=== PATIENT | female | born 1945 | race Caucasian/White ===

== ENCOUNTER 2022-06-02 10:05 | Emergency (ER) | payer MEDICARE ==
[2022-06-02] MEDS ORDERED: Morphine 4 MG/ML VIAL ONE (11:38)
[2022-06-02] MEDS ORDERED: Diazepam 5 MG TAB ONE (12:00)
[2022-06-02] MEDS ORDERED: Diazepam 2 MG TAB PO SCH (12:00)
== END 2022-06-02 13:09 | disposition home or self-care (01) ==
LOC: CSHERS 10:05
DX: M54.42 Lumbago with sciatica, left side (principal); B35.3 Tinea pedis; I10 Essential (primary) hypertension
CPT/HCPCS: 96372; 99283; J2270

== ENCOUNTER → 2022-06-03 | Emergency (ER) | payer MEDICARE ==
[~2022-06-03] MED LIST: Dexamethasone 10 MG/ML VIAL ONE; Morphine 2 MG/ML VIAL ONE
[2022-06-03 14:11] LABS: Hemoglobin 11.1 g/dL (12.0-15.5); Mean Corpuscular Volume 86.5 fl (81.6-98.3); Red Blood Cell (RBC) Count 3.85 10x6/uL (3.90-5.03); White Blood Cell (WBC) Count 11.5 10x3/uL (3.5-10.5)
[2022-06-03 14:12] LABS: #Basophils 0.1 10x3/uL (0.0-0.2); #Eosinphils 0.5 10x3/uL (0.0-0.5); #Monocytes 1.2 10x3/uL (0.0-1.1); #Neutrophils 8.5 10x3/uL (1.5-8.4); %Basophils 0.4 % (0.0-2.0); %Eosinophils 4.4 % (0.0-6.0); %Lymphocytes 10.7 % (18.0-47.0); %Monocytes 10.5 % (0.0-10.0); %Neutrophils 73.7 % (40.0-75.0); Mean Corpuscular HGB CONC 33.3 g/dL (32.0-36.0); Mean Corpuscular Hemoglobin 28.8 pg (27.0-33.0); Mean Platelet Volume 8.9 fl (7.4-10.4); Platelet Count 536 10x3/uL (130-400); RBC Distribution Width 15.2 % (11.5-14.5)
[2022-06-03 14:13] LABS: Anion Gap 15 mmol/L (10-20); BUN (Urea Nitrogen) 16 mg/dL (9.8-20.1); Carbon Dioxide 21 mmol/L (23-31); Chloride 100 mmol/L (98-107); Potassium 4.5 mmol/L (3.5-5.1); Sodium 131 mmol/L (136-145)
[2022-06-03 14:14] LABS: ALT (SGPT) 16 U/L (8-55); AST (SGOT) 30 U/L (5-34); Albumin 3.7 g/dL (3.4-4.8); Alkaline Phosphatase 64 U/L (40-110); Bilirubin, Total 0.5 mg/dL (0.2-1.2); Calc. Creatinine Clearance 0 mL/min (70-130); Calcium 9.3 mg/dL (7.6-10.4); Estimated GFR 60; Globulin 2.9 g/dL (2.4-3.5); Glucose 86 mg/dL (83-110); Protein, Total 6.6 g/dL (5.8-8.1)
== END ==
LOC: CSHERS 11:59
DX: M54.42 Lumbago with sciatica, left side (principal); M54.41 Lumbago with sciatica, right side; I10 Essential (primary) hypertension
CPT/HCPCS: 72131; 96374; 96375; 96376; J1100; J2270

== ENCOUNTER 2023-10-20 16:06 | Emergency (ER) | payer MEDICARE ==
[2023-10-20 16:40] LABS: Bilirubin Neg (Negative); Blood, Urine 25 (Negative); Glucose, Urine (Dipstick) Normal (Negative); Ketone, Urine Negative (Negative); Leukocyte 500 (Negative); Nitrite Positive (Negative); Protein, Urine (Dipstick) 30 mg/dl (Neg-Trace)
[2023-10-20 16:42] LABS: Clarity Slightly Cloudy (Clear)
[2023-10-20 16:48] LABS: Bacteria/HPF 4+ HPF (None Seen); CAUTI Indications for Culture Dysuria,urgency,freq; Transitional Epithelial 0-3 HPF (None Seen)
[2023-10-20 16:51] LABS: Urine Culture Reflex Yes Yes
[2023-10-20 17:15] LABS: Influenza A by NAA Not Detected (NotDetected); Influenza B by NAA Not Detected (NotDetected); SARS-CoV-2 NAA Rapid Test Not Detected (NotDetected)
[2023-10-20 17:18] LABS: #Basophils 0.02 10x3/uL (0.0-0.2); #Eosinphils 0.11 10x3/uL (0.0-0.5); #Monocytes 0.73 10x3/uL (0.0-1.1); #Neutrophils 3.53 10x3/uL (1.5-8.4); %Basophils 0.4 % (0.0-2.0); %Eosinophils 2.1 % (0.0-6.0); %Lymphocytes 15.9 % (18.0-47.0); %Monocytes 13.7 % (0.0-10.0); %Neutrophils 66.2 % (40.0-75.0); Hematocrit 31.4 % (34.9-44.5); Mean Corpuscular Hemoglobin 36.4 pg (27.0-33.0); Mean Platelet Volume 9.2 fl (7.4-10.4); Platelet Count 266 10x3/uL (150-450); RBC Distribution Width 15.9 % (11.5-14.5); Red Blood Cell (RBC) Count 3.02 10x6/uL (3.90-5.03); White Blood Cell (WBC) Count 5.3 10x3/uL (3.5-10.5)
[2023-10-20 17:20] LABS: ALT (SGPT) 19 U/L (8-55); AST (SGOT) 41 U/L (5-34); Albumin 3.1 g/dL (3.4-4.8); Alkaline Phosphatase 73 U/L (40-110); Anion Gap 13 mmol/L (10-20); BUN (Urea Nitrogen) 18 mg/dL (9.8-20.1); Bilirubin, Total 0.9 mg/dL (0.2-1.2); Calc. Creatinine Clearance 0 mL/min (70-130); Calcium 8.9 mg/dL (7.8-10.44); Carbon Dioxide 22 mmol/L (23-31); Chloride 103 mmol/L (98-107); Estimated GFR 65; Globulin 3.2 g/dL (2.4-3.5); Glucose 102 mg/dL (83-110); Potassium 3.8 mmol/L (3.5-5.1); Protein, Total 6.3 g/dL (5.8-8.1); Sodium 134 mmol/L (136-145)
[2023-10-20] MEDS ORDERED: Cefuroxime 250 MG TAB PO SCH (18:30)
== END 2023-10-20 18:34 | disposition home or self-care (01) ==
LOC: CSHERS 16:06
DX: N39.0 Urinary tract infection, site not specified (principal); J18.9 Pneumonia, unspecified organism; J06.9 Acute upper respiratory infection, unspecified; I10 Essential (primary) hypertension
CPT/HCPCS: 0240U; 71045; 80053; 81001; 85025; 87086; 93005; 36415; 87077; 87186

== ENCOUNTER 2024-01-09 15:11 | Outpatient (CLI) | payer MEDICARE ==
[2024-01-09 17:17] LABS: ALV-art Gradient 47.195 mmHg (0-20); Actual Bicarbonate (HCO3a) 25.3 mEq/L (22-28); Analyzer IN Cardio CS ER; Base Excess (BEa) 1.2 mEq/L (-2.0 to +3.0); CO2 Tension 38.5 mmHg (35.0-45.0); Calcium, Ionized (arterial) 1.19 mmol/L (1.12-1.30); Carboxyhemoglobin (COHb) 0.3 gm% (0.0-3.0); Hematocrit-ABG 38 % (36.0-47.0); Hemoglobin (Hb) 12.9 g/dL (12.0-16.0); O2 Tension (PaO2), arterial 75.8 mmHg (> 70.0); Puncture Site RRA; pH, Arterial 7.436 (7.35-7.45)
== END 2024-01-09 15:12 | disposition home or self-care (01) ==
LOC: CSHCT 15:11
PROVIDERS: ATTEND Internal Medicine
DX: J84.10 Pulmonary fibrosis, unspecified (principal); R94.2 Abnormal results of pulmonary function studies
CPT/HCPCS: 36600; 71250; 82805; 94010; 94726; 94729; 94760

== ENCOUNTER 2024-01-29 14:36 | Emergency (ER) | payer MEDICARE ==
[2024-01-29 16:05] LABS: #Basophils 0.05 10x3/uL (0.0-0.2); #Eosinphils 0.43 10x3/uL (0.0-0.5); %Basophils 0.6 % (0.0-2.0); %Lymphocytes 19.5 % (18.0-47.0); %Monocytes 9.3 % (0.0-10.0); %Neutrophils 65.4 % (40.0-75.0); Hematocrit 34.6 % (34.9-44.5); Hemoglobin 11.4 g/dL (12.0-15.5); Mean Corpuscular HGB CONC 32.9 g/dL (32.0-36.0); Mean Corpuscular Hemoglobin 30.2 pg (27.0-33.0); Mean Corpuscular Volume 91.5 fL (81.6-98.3); Mean Platelet Volume 9.6 fL (7.4-10.4); Platelet Count 345 10x3/uL (150-450); RBC Distribution Width 13.4 % (11.5-14.5); Red Blood Cell (RBC) Count 3.78 10x6/uL (3.90-5.03); White Blood Cell (WBC) Count 8.6 10x3/uL (3.5-10.5)
[2024-01-29 16:13] LABS: Bilirubin Neg (Negative); Blood, Urine Negative (Negative); Clarity Clear (Clear); Glucose, Urine (Dipstick) Normal (Negative); Ketone, Urine Negative (Negative); Leukocyte 25 (Negative); Nitrite Negative (Negative); Protein, Urine (Dipstick) Negative (Neg-Trace); Urobilinogen Normal mg/dL (Less than 2)
[2024-01-29 17:15] LABS: RBC/HPF 0-3 HPF (0-3)
[2024-01-29 17:16] LABS: Bacteria/HPF 3+ HPF (None Seen); CAUTI Indications for Culture Alt mental st,lethar; Renal Epithelial 0-3 HPF (None Seen); Squamous Epithelial 0-3 HPF (0-3)
[2024-01-29 17:17] LABS: Urine Culture Reflex No No
[2024-01-29 17:38] LABS: Influenza A by NAA Not Detected (NotDetected); Influenza B by NAA Not Detected (NotDetected); SARS-CoV-2 NAA Rapid Test Not Detected (NotDetected)
[2024-01-29] MEDS ORDERED: cefTRIAXone (ROCEPHIN) 1 GM VIAL ONE (17:47)
[2024-01-29 19:29] LABS: Anion Gap 10 mmol/L (10-20); BUN (Urea Nitrogen) 13 mg/dL (9.8-20.1); Calc. Creatinine Clearance 0 mL/min (70-130); Calcium 9.1 mg/dL (7.8-10.44); Carbon Dioxide 26 mmol/L (23-31); Chloride 103 mmol/L (98-107); Estimated GFR 78; Glucose 84 mg/dL (83-110); Potassium 3.9 mmol/L (3.5-5.1); Sodium 135 mmol/L (136-145)
== END 2024-01-29 21:22 | disposition home or self-care (01) ==
LOC: CSHERS 14:36
DX: N39.0 Urinary tract infection, site not specified (principal); I10 Essential (primary) hypertension
CPT/HCPCS: 0240U; 70450; 71045; 71275; 73030 ×2; 80048; 81001; 83690; 83880; 84484; 85025; 85379; 93005; J0696; 36415; 96374